=== PATIENT | male | born 1970 | race Caucasian/White ===

== ENCOUNTER 2020-07-03 22:12 | Inpatient (IN) | payer BC ==
[2020-07-04] MEDS ORDERED: Acetaminophen 325 MG TAB PO PRN (01:10)
[2020-07-04] MEDS ORDERED: Zolpidem Tartrate 5 MG TAB PO PRN (01:10)
[2020-07-04] MEDS ORDERED: Calcium Carbonate 500 MG ChewTAB PO PRN (01:10)
[2020-07-04] MEDS ORDERED: Senokot S 8.6-50 MG TAB PO PRN (01:10)
[2020-07-04] MEDS ORDERED: Ondansetron PF 4 MG/2 ML Vial IVP PRN (01:10)
[2020-07-04] MEDS ORDERED: Ventolin HFA Inhaler 60 PUFF INHALER INH PRN (01:14)
[2020-07-04] MEDS ORDERED: Azithromycin 500 MG in Sodium Chloride 0.9% 250 ML 250 ML IVPB SCH ×2 (02:00→12:00)
[2020-07-04] MEDS ORDERED: Dexamethasone 4 mg/ml Vial SLOW IVP SCH (02:00)
[2020-07-04 07:27] LABS: Calc. Creatinine Clearance 0 mL/min (70-130)
[2020-07-04 07:29] LABS: #Monocytes 0.4 10x3/uL (0.0-1.1); #Neutrophils 6.6 10x3/uL (1.5-8.4); %Lymphocytes 6.3 % (18.0-47.0); %Monocytes 4.7 % (0.0-10.0); %Neutrophils 88.6 % (40.0-75.0); Hemoglobin 13.7 g/dL (13.5-17.5); Mean Corpuscular Hemoglobin 27.9 pg (27.0-33.0); Mean Corpuscular Volume 84.5 fl (81.2-95.1); Mean Platelet Volume 11.3 fl (7.4-10.4); Platelet Count 157 10x3/uL (150-450); RBC Distribution Width 13.2 % (11.5-14.5); Red Blood Cell (RBC) Count 4.91 10x6/uL (4.32-5.72); White Blood Cell (WBC) Count 7.4 10x3/uL (3.5-10.5)
[2020-07-04 07:30] LABS: ALT (SGPT) 56 U/L (8-55); AST (SGOT) 55 U/L (5-34); Albumin 3.7 g/dL (3.5-5.0); Alkaline Phosphatase 69 U/L (40-110); Anion Gap 17 mmol/L (10-20); BUN (Urea Nitrogen) 20 mg/dL (8.9-20.6); Bilirubin, Total 0.4 mg/dL (0.2-1.2); CRP (Inflammatory) 12.62 mg/dL (= or < 0.5); Calc. Creatinine Clearance 0 mL/min (70-130); Calcium 8.6 mg/dL (7.8-10.44); Carbon Dioxide 19 mmol/L (22-29); Chloride 107 mmol/L (98-107); Glucose 127 mg/dL (70-105); Potassium 4.2 mmol/L (3.5-5.1); Protein, Total 6.7 g/dL (6.0-8.3); Sodium 139 mmol/L (136-145)
[2020-07-04 07:38] LABS: Potassium 3.8 mmol/L (3.5-5.1); Sodium 137 mmol/L (136-145)
[2020-07-04 07:39] LABS: Carbon Dioxide 22 mmol/L (22-29); Chloride 104 mmol/L (98-107)
[2020-07-04 07:40] LABS: Anion Gap 15 mmol/L (10-20); BUN (Urea Nitrogen) 21 mg/dL (8.9-20.6)
[2020-07-04 07:41] LABS: Bilirubin, Total 0.4 mg/dL (0.2-1.2); Globulin 3.4 g/dL (2.4-3.5); Glucose 126 mg/dL (70-105); Protein, Total 7.1 g/dL (6.0-8.3)
[2020-07-04 07:42] LABS: ALT (SGPT) 57 U/L (8-55); AST (SGOT) 57 U/L (5-34); Alkaline Phosphatase 83 U/L (40-110)
[2020-07-04] MEDS ORDERED: Dexamethasone 20 MG/5 ML VIAL SLOW IVP SCH (09:00)
[2020-07-04] MEDS: Ascorbic Acid 500 mg Chewable Tablet PO SCH (09:21)
[2020-07-04] MEDS: Benzonatate 100 MG CAP PO SCH ×3 (09:21→20:37)
[2020-07-04] MEDS: Guaifenesin DM 100-10/5 ML UDCUP PO SCH ×6 (09:21→20:36)
[2020-07-04] MEDS: Cholecalciferol 1,000 UNITS (25 MCG) TAB PO SCH (09:21)
[2020-07-04] MEDS: Zinc Gluconate 50 MG TAB PO SCH (09:22)
[2020-07-04] MEDS: Enoxaparin Sodium 40 MG/0.4 ML SYRINGE SC SCH ×2 (09:22→21:11)
[2020-07-04 09:54] LABS: #Monocytes 0.3 10x3/uL (0.0-1.1); #Neutrophils 5.8 10x3/uL (1.5-8.4); %Lymphocytes 7.8 % (18.0-47.0); %Neutrophils 86.9 % (40.0-75.0); Mean Corpuscular HGB CONC 32.4 g/dL (32.0-36.0); Mean Corpuscular Hemoglobin 27.8 pg (27.0-33.0); Mean Corpuscular Volume 85.9 fl (81.2-95.1); Mean Platelet Volume 11.3 fl (7.4-10.4); Platelet Count 145 10x3/uL (150-450); RBC Distribution Width 13.4 % (11.5-14.5); Red Blood Cell (RBC) Count 4.67 10x6/uL (4.32-5.72); White Blood Cell (WBC) Count 6.7 10x3/uL (3.5-10.5)
[2020-07-04] MEDS: HYDROcodone/Acetaminophen 5/325 mg Tablet PO PRN ×2 (10:07→19:08)
[2020-07-04] MEDS: Dexamethasone 4 mg/ml Vial SLOW IVP SCH (13:39)
[2020-07-04 20:09] VITALS: BMI 41.1
[2020-07-04 20:13] LABS: Legionella Urinary Ag Negative (Negative)
[2020-07-04 20:14] LABS: Strep pneumo Urine Ag NEGATIVE (NEGATIVE)
[2020-07-04] MEDS ORDERED: Aspirin 81 mg Enteric Coated Tablet PO SCH (21:00)
[2020-07-04] MEDS ORDERED: Latanoprost 0.005% Ophth Soln 2.5 ml Bottle EA EYE SCH (21:00)
[2020-07-04] MEDS ORDERED: Amlodipine 5 MG TAB PO SCH (21:00)
[2020-07-05] MEDS: Guaifenesin DM 100-10/5 ML UDCUP PO SCH ×5 (00:35→12:35)
[2020-07-05] MEDS: HYDROcodone/Acetaminophen 5/325 mg Tablet PO PRN ×3 (00:42→10:10)
[2020-07-05] MEDS ORDERED: REMDESIVIR (EUA) 200 MG in Sodium Chloride 0.9% 250 ML 210 ML IV SCH (08:00)
[2020-07-05] MEDS: Zinc Gluconate 50 MG TAB PO SCH (09:22)
[2020-07-05] MEDS: Cholecalciferol 1,000 UNITS (25 MCG) TAB PO SCH (09:22)
[2020-07-05] MEDS: Ascorbic Acid 500 mg Chewable Tablet PO SCH (09:22)
[2020-07-05] MEDS: Benzonatate 100 MG CAP PO SCH (09:22)
[2020-07-05] MEDS: Enoxaparin Sodium 40 MG/0.4 ML SYRINGE SC SCH (09:23)
[2020-07-05] MEDS ORDERED: Enoxaparin Sodium 100 MG/ML SYRINGE SC SCH (11:00)
[2020-07-05] MEDS: Dexamethasone 4 mg/ml Vial SLOW IVP SCH (11:31)
[2020-07-05] MEDS ORDERED: TOCILIZUMAB IV SCH (12:00)
[2020-07-05] MEDS ORDERED: SODIUM CHLORIDE 0.9% IV SCH (12:00)
[2020-07-05 12:04] LABS: Actual Bicarbonate (HCO3a) 23.9 mEq/L (22-28); Base Excess (BEa) 0.2 mEq/L (-2.0 to +3.0); CO2 Tension 35.8 mmHg (35.0-45.0); Calcium, Ionized (arterial) 1.22 mmol/L (1.12-1.30); Carboxyhemoglobin (COHb) 0.2 gm% (0.0-3.0); Hemoglobin (Hb) 13.7 g/dL (14.0-18.0); Notified Whom: EA; O2 Tension (PaO2), arterial 61.1 mmHg (80.0-100.0); Potassium - ABG Lab 3.7 mmol/L (3.70-5.30); pH, Arterial 7.44 (7.35-7.45)
[2020-07-05 19:53] VITALS: BP 128/61; TEMP 100.3
[2020-07-06] MEDS ORDERED: REMDESIVIR (EUA) 100 MG in Sodium Chloride 0.9% 250 ML 230 ML IV SCH (09:00)
[2020-07-06 17:20] LABS: Puncture Site RRA
== END 2020-07-05 12:40 | disposition short-term general hospital (02) | DRG 177 ==
LOC: CSHERS 22:12 → CSHTELE 07-04 08:59
PROVIDERS: ADMIT Internal Medicine; ATTEND Internal Medicine
PROC: 8E0ZXY6 Isolation (ICD-10-PCS; 2020-07-04)
PROC: XW033E5 Introduction of Remdesivir Anti-infective into Peripheral Vein, Percutaneous Approach, New Technology Group 5 (ICD-10-PCS; principal; 2020-07-05)
PROC: XW033H5 Introduction of Tocilizumab into Peripheral Vein, Percutaneous Approach, New Technology Group 5 (ICD-10-PCS; 2020-07-05)
DX: U07.1 COVID-19 (principal); J12.82 Pneumonia due to coronavirus disease 2019; J96.01 Acute respiratory failure with hypoxia; Z68.41 Body mass index [BMI] 40.0-44.9, adult; I10 Essential (primary) hypertension; E66.9 Obesity, unspecified; Z88.0 Allergy status to penicillin; Z87.891 Personal history of nicotine dependence; H40.059 Ocular hypertension, unspecified eye; Z79.82 Long term (current) use of aspirin; Z79.899 Other long term (current) drug therapy
CPT/HCPCS: 36415; 36600; 71045; 80053; 82728; 82805; 83605; 84484; 85025; 85379; 86140; 87040; 87449; 87899; 93005; 94660; 94760; J0456; J1100; J1650; J7050